=== PATIENT | female | born 1975 | race Caucasian/White ===

== ENCOUNTER 2017-12-10 10:02 | Emergency (ER) | payer OTHER ==
[~2017-12-10] VITALS: Ht 162.6 cm; Wt 83.3 kg
[~2017-12-10 10:02] MED LIST: ASPIR 8181 M1 PO; CIPRO750 MG PO; DULCOLAX STOOL100 MG PO; NOHOMEMEDS; NORVASC2.5 MG PO; OXYCODONE5 MG PO; PLAVIX75 MG PO; PRAVACHOL20 MG PO; ZOFRAN4 MG PO; [UNRECOGNIZED DRUG - OTHER] IV
[2017-12-10 11:52] LABS: HEMATOCRIT 43.3 % (36.0-46.0); HEMOGLOBIN 15.8 G/DL (11.9-15.5); MCH 34.6 PG (29.0-34.0); MCHC 36.5 G/DL (30.0-36.0); MCV 94.7 FL (83-99); PLATELET COUNT 270 K/uL (156-360); RBC DIS.WIDTH-CV 11.5 % (11.8-14.6); RBC DIS.WIDTH-SD 39.9 % (39-53); RED BLOOD COUNT 4.57 M/uL (3.80-5.20); WHITE BLOOD COUNT 10.4 K/uL (4.1-10.2)
[2017-12-10 12:27] LABS: CHLORIDE 110 MEQ/L (99-109); CREATININE 0.6 MG/DL (0.6-1.3); GFR ESTIMATE (CALCULATED) > 59 mL/min/; GLUCOSE 100 mg/dL (70-99); POTASSIUM 3.7 MEQ/L (3.7-5.4); SODIUM 140 MEQ/L (136-147); UREA NITROGEN (BUN) 8 mg/dL (9-23)
[2017-12-10 12:31] LABS: QUANTITATIVE HCG < 4.0 MIU/ML
[2017-12-10] MEDS ORDERED: PEN-VEE K,VEET500 MG PO (15:28)
[2017-12-10 15:47] VITALS: BP 182/91
== END 2017-12-10 15:48 | disposition home or self-care (01) ==
LOC: EME 10:02
PROVIDERS: Physician Assistant
DX: K04.7 Periapical abscess without sinus (principal); L03.211 Cellulitis of face; J32.0 Chronic maxillary sinusitis; F32.9 Major depressive disorder, single episode, unspecified; I25.2 Old myocardial infarction; Z95.1 Presence of aortocoronary bypass graft; Z72.0 Tobacco use; Z79.82 Long term (current) use of aspirin
CPT/HCPCS: 70487; 80048; 84702; 85027; 99281; 99284; J1885